=== PATIENT | female | born 1950 | race African-American/Black ===

== ENCOUNTER 2017-02-10 18:07 | Emergency (ER) | payer OTHER ==
[2017-02-10 18:21] VITALS: BP 0/0; BMI 20.5
[2017-02-10] MEDS ORDERED: NALOXONE HCL 0.4 MG/ML VIAL ONE (18:25)
[2017-02-10] MEDS ORDERED: CALCIUM CHLORIDE 1 GM/10 ML *DISP.SYRIN ONE (18:26)
--- NOTE | 2017-02-10 18:32 | PDOC ---
History of Present Illness - General Chief Complaint: Cardiac Arrest Stated Complaint: CARDIAC ARREST Time Seen by Provider: 02/10/17 18:25 - History of Present Illness Initial Comments: 02/10/17 18:25 The patient is a 66 year old female with a history of Hep C, HTN, COPD, heroin abuse who was found down for an unknown amount of time in her room. EMS was called and the patient was Asystolic on arrival. Chest compressions were started at 5:26pm. She was intubated in the field with a 7.5 ET tube. She recieved 3 rounds of epi, 1 amp of bicarb, 1 amp of calcium chloride, and 2mg of narcan en route. She went into vfib and received 1 shock and amiodarone. Upon arrival in the ED the patient was asystolic with chest compressions in progress. Past History - Past Medical History Allergies/Adverse Reactions: Allergies Allergy/AdvReac Type Severity Reaction Status Date / Time No Known Drug Allergies Allergy Verified 02/10/17 18:21 Home Medications: Ambulatory Orders Ondansetron [Zofran -] 4 mg PO TID PRN #21 tablet 09/22/13 Pantoprazole Sodium [Protonix -] 40 mg PO BID #60 tablet.ec 09/22/13 Albuterol Sulfate [Proair Hfa -] 1 - 2 inh PO QID #1 hfa.aer.ad 10/19/13 Diltiazem [Cardizem -] 90 mg PO BID #60 tablet 10/19/13 Glyburide/Metformin HCl [Glyburide-Metformin 5-500 mg] 1 each PO BID #30 tablet 10/19/13 Ibuprofen [Motrin -] 400 mg PO Q6H PRN #90 tablet 10/19/13 Insulin (Levemir) [Levemir Flexpen -] 20 units SQ AM #7 pen 10/19/13 Magnesium Oxide [Mag-Ox -] 400 mg PO BID #30 tablet 10/19/13 Methylprednisolone [Medrol Dose Tho] 4 mg PO ASDIR #21 tablet 10/19/13 Mirtazapine [Remeron -] 15 mg PO HS #30 tablet 10/19/13 Potassium Chloride [K-Dur -] 40 meq PO DAILY #10 tablet.er 10/19/13 Pregabalin [Lyrica -] 50 mg PO ASDIR #30 capsule 10/19/13 Salmeterol/Fluticasone [Advair 250Mcg/50Mcg -] 1 inh IH ASDIR #1 inh 10/19/13 Tiotropium Bear [Spiriva] 1 inh PO DAILY #1 inh 10/19/13 Venlafaxine HCl ER [Effexor Xr -] 37.5 mg PO DAILY #30 cap.er.24h 10/19/13 Acetaminophen [Tylenol .Regular Strength -] 650 mg PO Q4H PRN #0 tablet Albuterol 0.083% Nebulizer Zuly [Ventolin 0.083% Nebulizer Soln -] 1 amp NEB Q4H PRN #0 amp 09/05/15 Arformoterol Tartrate [Brovana -] 1 amp NEB BID amp 09/05/15 Diazepam [Valium] 5 mg PO BID PRN #0 tablet MDD 2 09/05/15 Enoxaparin [Lovenox -] 30 mg SQ DAILY disp.syrin 09/05/15 Insulin (Levemir) [Levemir Vial] 10 units SQ DAILY@0800 ml 09/05/15 Oxycodone HCl [Roxicodone -] 10 mg PO Q4H PRN #0 tablet MDD 6 09/05/15 Prednisone 10 mg PO DAILY 8 Days tablet 09/05/15 Tiotropium Bear [Spiriva] 1 puff IH DAILY inh 09/05/15 Anemia: No Asthma: No Cancer: No Cardiac Disorders: Yes (CAROTID ARTERY PLAQUE; AORTIC CALCIFICATIONS) CVA: No COPD: Yes CHF: No Dementia: No Diabetes: Yes GI Disorders: No Disorders: No HTN: Yes Hypercholesterolemia: Yes Liver Disease: No Seizures: No Thyroid Disease: No - Surgical History Abdominal Surgery: Yes (Exploratory) Appendectomy: No Cardiac Surgery: No Cholecystectomy: No Lung Surgery: No Neurologic Surgery: No Orthopedic Surgery: Yes (lt knee replacement) - Immunization History Td Vaccination: No TDAP Vaccination: No Immunization Up to Date: No - Suicide/Smoking/Psychosocial Hx Smoking Status: Yes Smoking History: Unknown if ever smoked Years of Tobacco Use: 0 Have you smoked in the past 12 months: No Number of Cigarettes Smoked Daily: 20 If you are a former smoker, when did you quit?: 11/19/12 Cigars Per Day: 0 'Breaking Loose' booklet given: 12/02/12 Hx Alcohol Use: No Drug/Substance Use Hx: Yes Substance Use Type: Prescribed Hx Substance Use Treatment: No Review of Systems - Review of Systems Able to Perform ROS?: No (Cardiac Arrest) *Physical Exam - Vital Signs Last Vital Signs Temp Pulse Resp BP Pulse Ox 0/0 02/10/17 18:10 - Physical Exam Comments: 02/10/17 18:35 General Appearance: In Cardiac Arrest and unresponsive. Intubated. HEENT: Pupils fixed and dialated. ET tube in place. Neck: No Cervical Lymphadenopathy Respiratory/Chest: Breath sounds bilaterally. Cardiovascular: No Cardiac activity Gastrointestinal/Abdominal: Distended abdomen. Unable to assess due to cardiac arrest. Musculoskeletal: Unable to assess. Integumentary: Cold to touch. Neurologic: Unresponsive, pupils fixed and dialated. Medical Decision Making - Critical Care Time Total Critical Care Time (minutes): 30 Critical Care Statement: The care of this patient involved high complexity decision making to prevent further life threatening deterioration of the patient 's condition and/or to evaluate & treat vital organ system(s) failure or risk of failure. - Medical Decision Making 02/10/17 18:37 The patient is a 66 year old female with a history of Hep C, HTN, COPD, heroin abuse who was found down for an unknown amount of time in her room. Patient received 1 amp of bicarb, 3 rounds of epi, 2g of Mg, and 1.2mg of Narcan. Patient remained asystolic throughout the entire code with no cardiac activity on US. Patient was pronounced at 6:12pm after approximately 50mins of known down time. 02/10/17 18:43 We discussed the case with the Machine Mover's office and they have accepted the case. *DC/Admit/Observation/Transfer Diagnosis at time of Disposition: Cardiac arrest - Discharge Dispostion Disposition: - Referrals - Patient Instructions - Post Discharge Activity
--- NOTE | 2017-02-10 18:48 | PDOC ---
Attending Attestation - Resident Resident Name: Sebastien Winslow - ED Attending Attestation I have performed the following: I have examined & evaluated the patient, The case was reviewed & discussed with the resident, I agree w/resident's findings & plan, Exceptions are as noted - HPI HPI: 02/10/17 18:43 I saw this patient immediately upon arrival to the ER. This is a 66 yo F h/o HTN, Hep C, COPD, substance abuse EMS called EMS arrived at approximately 5:23 pm Initial rhythm asystole CPR started immediately In total, Epinephrine administered x 3 Sodium Bicarbonate x 1 Narcan 2mg given Calcium Chloride x 1 given Pt intubated (7.5, 24 cm at the lip) Rhythm at one point noted to be Vifb S/p Defibrillation x 1 Amiodarone 300mg given Pt transported to the ER Initial rhythm in the ER Asystole Chest compressions resumed via CARLEY machine Pt given Epinephrine x 3, Pt given HCO3 x 1 Narcan 1.2 mg Remains Asystolic Bedside ECHO performed, no cardiac activity Time of : 6:12pm 02/10/17 18:48 - Physicial Exam PE: 02/10/17 18:47 GENERAL: The patient is asystolic, unresponsive HEAD: Normal with no signs of trauma. EYES: pupils 5mm bilaterally and fixed NECK: supple, trachea midline, no bruising noted LUNGS: intubated with equal breath sounds HEART: No cardiac activity ABDOMEN: Soft, nondistended, no breath sounds over epigastrium EXTREMITIES: No edema, no erythema, no deformities, finger nail beds dusky NEUROLOGICAL: no spontaneous activity or motion. SKIN: Cool, no rashes or lesions noted, - Medical Decision Making 02/10/17 18:48 66 yo F s/p cardiac arrest S/p approximately 50 minutes of CPR This patient has Pt nephew present in the ER Case reviewed with Tool [employer]ter Case accepted by ME Please see resident note for additional information
== END 2017-02-10 20:54 | disposition expired ==
LOC: JER 18:07
PROC: 5A02216 Assistance with Cardiac Output using Other Pump, Continuous (ICD-10-PCS; principal; 2017-02-10)
DX: I46.9 Cardiac arrest, cause unspecified (principal); I10 Essential (primary) hypertension; E11.9 Type 2 diabetes mellitus without complications; Z79.4 Long term (current) use of insulin; J44.9 Chronic obstructive pulmonary disease, unspecified; F11.10 Opioid abuse, uncomplicated; B18.2 Chronic viral hepatitis C; I65.29 Occlusion and stenosis of unspecified carotid artery
CPT/HCPCS: 99283-25